=== PATIENT | female | born 1935 | race Caucasian/White ===

== ENCOUNTER 2024-10-17 20:26 | Emergency (ER) | payer OTHER, SELFPAY ==
[2024-10-17 20:31] VITALS: BP 168/92
[2024-10-17 20:52] LABS: Urine Albumin Negative (Neg - Trace); Urine Bilirubin Negative (Negative); Urine Character Clear (Clear); Urine Color Yellow; Urine Glucose Negative (Negative); Urine Ketone Negative (Negative); Urine Leukocyte Negative (Negative); Urine Nitrite Negative (Negative); Urine Occult Blood Negative (Negative); Urine Specific Gravity 1.025 (<1.030); Urine Urobilinogen Negative (Neg - 1+)
[2024-10-17 20:53] VITALS: BMI 18.8
[2024-10-17 20:54] LABS: % Eosinophils 2.2 % (0-6); % Immature Granulocytes 0.2 % (0-0.5); % Lymphocytes 29.8 % (20.5-51.1); % Monocytes 8.9 % (1.7-9.3); % Neutrophils 57.9 % (42.2-75.2); Absolute Basophils 0.1 10^3/uL (0-0.2); Absolute Eosinophils 0.1 10^3/uL (0-0.7); Absolute Lymphocytes 1.8 10^3/uL (1.2-3.4); Absolute Monocytes 0.5 10^3/uL (0.1-0.6); Absolute Neutrophils 3.4 10^3/uL (1.4-6.5); Hematocrit 38.7 % (37.0-47.0); Hemoglobin 13.1 g/dL (12.0-16.0); Mean Corp Hgb Conc. 33.9 g/dL (33.0-37.0); Mean Corpuscular Hgb 32.6 pg (27.0-31.0); Mean Corpuscular Volume 96.3 fL (81.0-99.0); Mean Platelet Volume 9.1 fL (7.4-10.4); Nucleated Red Blood Cells % 0 %; Platelet Count 248 10^3/uL (130-400); Red Blood Cell Count 4.02 10^6/uL (4.20-5.40); Red Cell Dist. Width 14.3 % (11.5-14.5); White Blood Cell Count 5.9 10^3/uL (4.8-10.8)
[2024-10-17 21:08] LABS: ALT (SGPT) 23 U/L (0-35); AST (SGOT) 37 U/L (14-36); Albumin 4.4 g/dl (3.5-5.0); Alkaline Phosphatase 66 U/L (38-126); Blood Urea Nitrogen 17 mg/dl (7-17); Calcium 10.6 mg/dl (8.4-10.2); Carbon Dioxide 27 mmol/L (22-30); Chloride 106 mmol/L (98-107); Estimated Creatinine Clearance 52 ml/min; Glucose 101 mg/dl (70-99); Lipase 89 U/L (23-300); Potassium 4.1 mmol/L (3.5-5.1); Sodium 138 mmol/L (135-145); Total Bilirubin 0.6 mg/dl (0.2-1.3); eGFR > 60.00
--- NOTE | 2024-10-17 21:08 | ED.GENMED ---
History of Present Illness
General
Chief Complaint: Abdominal Pain
Source: patient
Exam Limitations: none
Time Seen by Provider: 10/17/24 20:58
Nursing documentation reviewed up to this point in time: agreed with
History of Present Illness
History of Present Illness:
89-year-old female with history as noted presents to the ER for evaluation of abdominal pain. Patient reports onset of symptoms this evening prior to arrival and symptoms have been constant since then although the time my assessment she says
symptoms have improved somewhat. She reports that she went to the [employer] and had trouble getting comfortable but did not have significant pain. She subsequently went to dinner and after she ate her salad she had acute onset of intense pain
in the right mid abdomen. Pain nonradiating. She did not have any associated nausea or vomiting. Denies any associated diarrhea or constipation. Has not noted any dysuria, hematuria, change in urinary frequency. Denies fevers or chills. She
has never had similar symptoms in the past. She denies prior abdominal surgeries.
Past History
Past History
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
ED Past Surgical History: Orthopedic (bilateral knee replacements (2005), bilateral thumb surgery (2001), excision melanoma of neck (2011))
Social History
Tobacco: Non-smoker
Alcohol: Occasional
Drug: None
Personal:
Living: with family
Review of Systems
Review of Systems
All Other Systems: ROS reviewed and negative except as documented in HPI and ROS
Constitutional: Denies fever or chills
Respiratory: Denies cough or trouble breathing
Cardiac: Denies chest pain
ABD/GI: Reports abdominal pain; Denies nausea, vomiting, diarrhea or constipated
: Denies dysuria, frequency or flank pain
Musculoskeletal: Denies back pain
Phy Exam
Physical Exam
Physical Exam:
General: Awake, alert, oriented x3; no acute distress
Head: Normocephalic, atraumatic
Eyes: Conjunctiva normal, sclera anicteric
Throat: Airway intact, handling secretions
Neck: Trachea midline, supple without meningismus
Lungs: Clear to auscultation bilaterally, no wheezing, rales, rhonchi
Heart: Regular rate and rhythm, no murmurs, gallops, or rubs
Abd: Soft, non distended, mildly tender in the right upper quadrant, no palpable masses or hepatosplenomegaly
Back: No CVA tenderness
Neuro: No gross deficits
Skin: no rash in area of concern
Extremities: Warm and well-perfused
Scores
Heart Failure Risk
Heart Failure Risk Score: Not Applicable
Heart Score for Chest Pain Patients
STEMI patient?: Not applicable
Withdrawal Assessment of Alcohol
Withdrawal Assessment Completed?: Not applicable
Course
Orders/Labs/Results
Orders:
Orders
10/17/24 20:33
Electrocardiogram (*1) Urgent
Reason for Study: Abdominal Pain
EKG- Treatment ONCE
10/17/24 20:42
Complete Blood Count/With Diff Urgent
Comprehensive Metabolic Panel Urgent
Lipase Urgent
Urinalysis Reflex To Culture Urgent
Date Specimen was Collected: 10/17/24
Time Specimen was Collected: 20:33
10/17/24 21:00
CT Abd/pelvis W Iv Cont Urgent
Comment:
Reason For Exam: RLQ pain
10/17/24 21:01
EKG [Electrocardiogram (*1)] Urgent
Reason for Study: Abnormal EKG
EKG- Treatment ONCE
10/17/24 21:07
Add On- LAB Urgent
Tests Added?: troponin
10/17/24 21:29
Troponin I Urgent
Abnormal Lab Results
10/17/24
20:42
RBC 4.02 L 10^6/uL
(4.20-5.40)
MCH 32.6 H pg
(27.0-31.0)
Glucose 101 H mg/dl
(70-99)
Calcium 10.6 H mg/dl
(8.4-10.2)
AST 37 H U/L
(14-36)
10/17/24 20:42
10/17/24 20:42
Vital Signs
Initial and Last Documented VS:
Initial Vital Signs
Temp Pulse Resp BP Pulse Ox
36.8 C 80 16 168/92 98
10/17/24 20:31 10/17/24 20:31 10/17/24 20:31 10/17/24 20:31 10/17/24 20:31
Last Documented Vital Signs
Temp Pulse Resp BP Pulse Ox
36.8 C 64 17 168/99 94
10/17/24 20:31 10/17/24 22:49 10/17/24 22:49 10/17/24 22:49 10/17/24 22:00
MDM/Problems Addressed
Differential Diagnosis Includes:
Cholelithiasis, cholecystitis, pancreatitis, enteritis, nephrolithiasis, appendicitis, gastritis/PUD
MDM/Problems Addressed:
89-year-old female presents for evaluation of right mid abdominal pain that started rather abruptly after eating a salad today. Hypertensive otherwise normal vitals. Physical exam as above. She had an EKG in triage which showed some nonspecific
ST changes. Will plan to place an IV check labs including a CBC and CMP, lipase. Will check urinalysis. Check troponin although low suspicion that symptoms are anginal equivalent based on location of pain and tenderness. Will monitor closely
reassess after the above�fortunately her pain has improved and she is declining pain medication at present.
Labs reviewed: CBC unremarkable, CMP no clinically significant abnormalities�notably normal T. bili, normal lipase. Troponin undetectable. Urinalysis bland. On clinical reassessment patient reports that she is currently pain-free. CT is pending.
CT shows diffuse enteritis/ileus but no other acute abnormalities. Reassessment patient is feeling well she says she is pain-free. She is requesting to trial p.o.�will reassess after p.o. trial. If she remains asymptomatic at that she can
reasonably be discharged with instructions for a bland diet.
Patient tolerating p.o. without issue. No additional pain, no vomiting or nausea. She is requesting discharge and I think she is stable for discharge at this point. Encouraged bland diet. Spoke in detail about return precautions, all questions
answered. I did provide a copy of blood work and CT for outpatient follow-up with primary.
Acute Exacerbation and/or Progression of Chronic Illness:
Acutely hypertensive
Acute Exacerbation and/or Progression of Chronic Illness: HTN
*Radiology
Radiology exam reviewed: radiology read reviewed
*Pulse Oximetry
Patient hypoxic: no
*EKG
Interpreted by ED Provider?: Yes
Heart Rate: 70
Rate: normal
Rhythm: sinus
[place]: normal axis
Interval: normal interval
QRS Pattern: left vent hypertrophy
Ischemia: other (Nonspecific T wave abnormality)
*Critical Care Note
Total Time (30-74mins, 75-104mins- exclusive of procedures): Not Applicable
Data Reviewed
Source: patient and other (Friends)
ED Attending Note
-
Portions of this chart may have been created with voice recognition software.� Occasional wrong word or��sound alike� substitutions may have occurred due to the inherent limitations of voice recognition software.
Discharge Plan
Departure
Patient Disposition: Home (Routine Discharge)
Date of Disposition: 10/17/24
Time of Disposition: 23:21
Patient with high blood pressure during this ER visit?: Yes
Discharge Problem:
Enteritis, Hypertension
Instructions: Viral gastroenteritis in adults, Abdominal Pain, BLOOD PRESSURE
Prescriptions:
No Action
No Current Medications
0
Referrals:
Venkat Gómez MD [Family Provider, [facility]] - Call in 1-3 days for appt
Activity Restrictions/Additional Instructions:
Thank you for visiting the Emergency Department at [facility].
1. Please schedule a follow up appointment as directed. Call first thing tomorrow morning to make an appointment.
2. If indicated, please take your medications as instructed and indicated on discharge paperwork.
3. If any of your symptoms do not improve, or persist, or become more severe within 6-12 hours, please return to the emergency department for further care.
4. Please return to the emergency department if you develop a headache, neck pain/stiffness, fever greater than 100.4F, chest pain, shortness of breath, persistent nausea, vomiting, slurred speech, difficulty walking, numbness/tingling, weakness,
signs of infection or any other symptoms that are worrisome to you.
Please call [phone] if you have any questions.
Interventions
Interventions:
*Risk Screen - Suicide Last Done: 10/17/24 20:31
*General Assessment Last Done: 10/17/24 20:54
*Neglect/Abuse Screening Last Done: 10/17/24 20:31
*ED COVID-19 Vaccine History Last Done: 10/17/24 20:54
AG-Nwrnzr-Smfpsxazmf Assessment Last Done: 10/17/24 20:55
Discharge Date and Time
Print Language: MOLDOVAN
[2024-10-17 22:00] VITALS: BP 169/90
[2024-10-17 22:18] LABS: Troponin I < 0.012 ng/ml
[2024-10-17 22:49] VITALS: BP 168/99
== END 2024-10-17 23:29 | disposition home or self-care (01) ==
LOC: EMR 20:26
PROVIDERS: Emergency Medicine; EMERGENCY PHYSICIAN Emergency Medicine; FAMILY PHYSICIAN Family Medicine
DX: K52.9 Noninfective gastroenteritis and colitis, unspecified (principal); I10 Essential (primary) hypertension; Z85.820 Personal history of malignant melanoma of skin
CPT/HCPCS: 99284; 74177; 80053; 81003; 83690; 84484; 85025; 93005; Q9967

== ENCOUNTER 2025-05-04 08:57 | Inpatient (IN) | payer OTHER, SELFPAY ==
[2025-05-01 22:00] VITALS: BP 159/83
[2025-05-02] VITALS (22 sets, daily range): BP systolic 135–168; BP diastolic 68–96
[2025-05-02] MEDS: MORPHINE SULFATE 2 MG IV ×2 (01:29→03:06)
--- NOTE | 2025-05-02 03:36 | ED.GENMED ---
History of Present Illness
General
Chief Complaint: Fall
Source: patient and witness (Currently visiting friends, Dr. Yahir Dior who is currently accompanying patient.)
Exam Limitations: none
Time Seen by Provider: 05/02/25 00:26
Nursing documentation reviewed up to this point in time: agreed with
History of Present Illness
History of Present Illness:
HISTORY OF PRESENT ILLNESS
The patient is an 89-year-old female who presented to the emergency department after sustaining a fall. She reports that she slipped on ice and fell forward, landing primarily on her left elbow, which she has fractured in the past as a child. She
denies hitting her head or losing consciousness during the fall. She is right-handed and the injury is on her left arm.
The patient is currently experiencing pain in the left elbow, which was described as fractured into several pieces. She denied having any significant pain on the opposite side. Examination of her left elbow revealed no clear signs of an open
fracture, but there was a noted skin abrasion posterior elbow. The digital pulse in the affected arm is intact, and she is able to move her fingers and thumbs, although with some discomfort.
The patient is not taking any daily medication, and her pain is moderate. She is allergic to sulfa drugs but not to any pain medications. The decision was made to start an intravenous line for faster administration of pain relief, and further
imaging studies were to be reviewed by an adult specialist to determine the next steps.
Past History
Past History
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
ED Past Surgical History: Orthopedic (bilateral knee replacements (2005), bilateral thumb surgery (2001), excision melanoma of neck (2011))
Social History
Tobacco: Non-smoker
Alcohol: Occasional
Drug: None
Personal:
Living: alone
Employment: Retired
Family History
Family History: Other (Noncontributory)
Phy Exam
Physical Exam
Physical Exam:
GEN: 89-year-old woman, thin build, appears her stated age, bright and alert, pleasant, appears mildly uncomfortable related to left elbow pain, easily communicative.
EYE: pupils equal and reactive. anicteric. The head is normocephalic, atraumatic.
NECK: Supple, nontender, full range of motion without difficulty nor pain.
ENT: posterior pharynx is clear, oral mucosa is moist. TM clear b/l, nares patent.
CARDIAC: Regular rate and rhythm. no murmur. No chest wall tenderness.
LUNGS: Clear breath sounds bilaterally, no acute respiratory distress, no wheezes/rales/rhonchi
ABDOMEN: Soft, nondistended, without focal tenderness, . normoactive BS.
NEUROLOGICAL: Alert and oriented x3, no focal neuro deficits.
SKIN: Warm and dry, normal color, no rash. There is superficial abrasion posterior superior left elbow region. This abrasion is superficial. There is no active bleeding. No puncture wound. Nothing to suggest open fracture.
MUSCULOSKELETAL: No C/C/E. peripheral pulses are full and equal b/l. There is marked soft tissue swelling/joint effusion about the left elbow with limited range of motion of the left elbow related to pain. There is no tenderness to the upper arm
nor forearm nor wrist. Full digit range of motion without difficulty nor pain. Peripheral pulses are full and equal bilaterally. Distal sensation intact.
PSYCH: Normal and appropriate interaction.
Course
Orders/Labs/Results
Orders:
Orders
05/02/25 00:05
CR Elbow - Left Min 3 Views Urgent
Reason For Exam: fall
05/02/25 00:40
Morphine Sulfate 2 mg IV NOW STA
05/02/25 02:10
Propofol [Diprivan] 20 ml .ROUTE .STK-MED
05/02/25 02:51
Morphine Sulfate 2 mg IV NOW STA
05/02/25 06:33
CT Upper Ext W/o Iv Cont Lt Urgent
Comment:
Reason For Exam: comminuted elbow fx
05/02/25 06:35
Sling Left-Treatment ONCE
05/02/25 07:44
Physical Therapy Consult [Pt Eval And Treat] Urgent
Treatment: ambulation evaluation. Left elbow fx
Activity Level: Ambulate
05/02/25 07:52
Ibuprofen [Motrin] 400 mg PO Q4HPRN PRN
Oxycodone [Roxicodone] 5 mg PO Q4HPRN PRN
Vital Signs
Initial and Last Documented VS:
Initial Vital Signs
Temp Pulse Resp BP Pulse Ox
97.6 F 63 16 159/83 99
05/01/25 22:00 05/01/25 22:00 05/01/25 22:00 05/01/25 22:00 05/01/25 22:00
Last Documented Vital Signs
Temp Pulse Resp BP Pulse Ox
98.5 F 68 16 142/68 98
05/02/25 03:15 05/02/25 07:30 05/02/25 07:30 05/02/25 06:00 05/02/25 06:30
Procedures
Moderate Sedation
ASA Risk Score: Class I
Chart and allergies reviewed: Yes
Consent for anesthesia obtained: Yes
Time out completed (validating right patient & procedure): Yes
Moderate Sedation Start Time(when first medication is given): 02:33
History of difficult intubation: No
Airway free of obstruction: Yes
Patient has a gag reflex: Yes
Patient is able to open mouth: Yes
Patient has no dentures: Yes
Patient has no loose teeth: Yes
Medication administered by Provider during Moderate Sedation: IV Propofol (mg)
Total dose administered: 65
Time drug administered: 02:33
Moderate Sedation Procedure End Time: 02:45
Splinting/Sling Placement
Left Elbow:
Procedure completed by: myself
Pre-splint extermity exam: neurovascular intact
Type of splint: sugar-tong and posterior long arm
Splint material: fiberglass
Type of sling: sling fitted
Normal distal neurovascular exam?: Yes
Joint/Fracture Reduction
Left Elbow:
Indication for procedure:: left elbow fracture subluxation
Procedure completed by: myself
Consent form signed: Yes
Joint reduced: with anesthesia sedation (Moderate sedation by ED provider)
Anesthesia/sedation: Moderate sedation
Injury was: closed
Further treatement: needs further treatment
Post reduction exam: stable
Capillary Refill: normal
Normal distal neurovascular exam?: Yes
MDM/Problems Addressed
Differential Diagnosis Includes:
DIFFERENTIAL DIAGNOSIS
The Differential Diagnosis includes, in no particular order and is not limited to:
1. Left elbow fracture (comminuted).
2. Soft tissue injury of the left elbow.
3. Closed fracture.
4. Contusion of the left elbow.
5. Open fracture.
6. Dislocation.
7. Sprain or strain of the surrounding ligaments.
8. Hemarthrosis.
9. Nerve injury secondary to fracture.
10. Osteoporosis-related fracture.
MDM/Problems Addressed:
Acute left elbow pain after fall.
Significant clinical concern for elbow fracture. There is note of superficial abrasion posterior elbow but no active bleeding, no puncture wound nor laceration. Nothing on exam to suggest open fracture.
Left elbow x-ray shows comminuted distal humerus/transcondylar fracture with questionable subluxation.
Case discussed with orthopedics, images shared with orthopedics, Dr. Barbosa. He recommends traction for reduction, sugar-tong splint then CT post reduction and recommends follow-up with Dr. Nazario versus Dr. Mack to discuss surgical planning.
Will plan for IV morphine, 2 mg at a time for pain control then will plan for moderate sedation with propofol for joint reduction, splinting.
*Radiology
Radiology exam reviewed: preliminary read by ED provider (Comminuted distal humerus fracture with questionable subluxation) and radiology read reviewed (CT shows significantly comminuted, multi fragmentary, intra-articular distal humerus fracture.
No definite olecranon nor radial head fracture. No dislocation. Elbow effusion. Surrounding soft tissue edema.)
*Pulse Oximetry
SaO2: 99
Oxygen Mode of Delivery: Room air
Patient hypoxic: no
*Primary [place] [employer] Interpretation
Rate: normal
Interpretation: normal
Rhythm: sinus
*Critical Care Note
Total Time (30-74mins, 75-104mins- exclusive of procedures): Not Applicable
Update Note
Update Note:
07:45
Despite reduction, splint applied to left arm patient is much more comfortable with lying supine but significant left elbow pain with attempted movement especially with attempted standing, ambulation.
She resides at home alone and is at significant risk for recurrent falls, inability to care for herself.
Recommend hospitalization for pain control, ortho evaluation, PT and case management evaluation.
I have notified hospitalist. Hospitalist recommending PT consult.
ED Attending Note
-
Portions of this chart may have been created with voice recognition software.� Occasional wrong word or��sound alike� substitutions may have occurred due to the inherent limitations of voice recognition software.
Discharge Plan
Departure
Condition: Fair
Discharge Problem:
Comminuted distal left humerus fracture
Instructions: Elbow Fracture, Adult ED, How to care for a splint, MODERATE SEDATION ADULT
Prescriptions:
No Action
No Current Medications
0
Referrals:
Venkat Gómez MD [Family Provider, Family Practice]
Interventions
Interventions:
*General Assessment Last Done: 05/01/25 23:24
*Neglect/Abuse Screening Last Done: 05/01/25 22:00
*ED COVID-19 Vaccine History Last Done: 05/01/25 23:24
*ED Influenza Vaccine History Last Done: 05/01/25 23:24
[facility] Risk Assessment Tool Last Done: 05/01/25 23:24
*Risk Screen - Suicide (C-SSRS) Last Done: 05/01/25 22:00
ED-Musculoskeletal Assessment Last Done: 05/01/25 23:24
ED- Neurological Assessment Last Done: 05/01/25 23:24
ED-Skin Assessment Last Done: 05/01/25 23:24
Discharge Date and Time
Print Language: ARABIC
--- NOTE | 2025-05-02 09:14 | CM ---
Received consult, reviewed chart and met with pt bedside in ED. Lives alone in 2 SH, 2 [address]IA[address], firsr floor half bath, full flight to second floor bedroom and full bath.
Independent in ADLS, personal care and ambulation at baseline. No assistive devices. 2 years ago, son lives in [facility] but is currently in [facility].
Pt has a friend who was her 's caregiver while he was on hospice, her name is Nohelia. Pt will reach out to her to see if she can provide assistance at home, I also provided her with list of private pay caregiver agencies in the area.
Discussed HH referral, pt is not sure she needs it. Check again prior to discharge.
No hx HH or SNF
PCP: Venkat Gómez
Pharmacy: [facility]
Dr Rudolph made aware of above, pt to be admitted, she is working on safe discharge plan. CM will continue to follow.
[2025-05-02] MEDS: MOTRIN 400 MG PO (10:02)
--- NOTE | 2025-05-02 11:04 | HPS.HSE ---
Family Physician
-
Family Physician: Venkat Gómez
Chief Complaint
-
Fall leading onto left distal humerus fracture
History of Present Illness
Patient went to visit her friend for [employer]. On the sidewalk there was ice and she stepped on it accidently and slipped and fell down without loss of consciousness. She immediately perceived pain in the left arm. She had
broken that arm as a child.
Imaging shows comminuted distal left humerus fracture. ER spoke with orthopedics who recommended splint for now and refer outpatient for surgical evaluation.
She lives alone and she is now handicapped with the left arm in the splint. She also needed intravenous pain medication on admission.
Patient is getting admitted as an observation for pain management, therapy evaluation and need of placement.
Patient denies any recent changes with her health. She was in her usual state of health. Does not take any prescribed medications.
Medical History
Past Medical History
Past Medical History: Reports Other (Diverticulitis, Enrike Bala syndrome)
Past Surgical History: Reports Orthopedic (Bilateral knee replacements) and Other (Excision of melanoma in the neck)
Social History
Tobacco: Non-smoker
Alcohol: None
Drug: None
Living: Alone
Family History
Family History: Not pertinent
Allergies / Home Medications
Allergies reflects when Allergies were last updated in [employer].
Home Medications with original date entered in [employer]
Allergy/Medication List:
Allergies
Allergy/AdvReac Type Severity Reaction Status Date / Time
Sulfa (Sulfonamide Allergy Unknown Unknown Verified 05/01/25 22:02
Antibiotics)
(Sulfa(Sulfonamide
Antibiotics))
levofloxacin (From Levaquin) Allergy Hives Verified 05/01/25 22:02
metronidazole (From Flagyl) Allergy Rash Verified 05/01/25 22:02
Home Medications
No Meds [No Current Medications] 10/17/24
Review of Systems
-
A 12 point ROS was completed and negative except as noted: Yes
Physical Exam
Vital Signs
Vital Signs
Temp Pulse Resp BP Pulse Ox
98.5 F 65 13 142/68 98
05/02/25 03:15 05/02/25 10:30 05/02/25 10:30 05/02/25 06:00 05/02/25 06:30
Physical Exam
General: No Apparent Distress
HEENT: Moist mucous membranes
Respiratory: Clear and Non Labored Respirations; No Accessory Resp Muscle Use
Cardiac: S1/S2 and Regular Rhythm; No Tachycardia or JVD
GI: Soft, Non Tender, Non Distended and Normal Bowel Sounds
Musculoskeletal: Other (left arm in cast - swollen fingers and slightly numbness perceived by pt . ER doc came back and loosened the cast and she feels better.)
Neuro: AO x 3 and No Motor Deficits (left arm in cast); No Slurred Speech, Facial Droop or Tremors
Psych: Calm and Intact Judgment/Insight; No Confused
Data Reviewed
-
CT Scan: Report Reviewed by me (report of CT arm)
Impression/Plan
-
Mechanical fall leading onto comminuted distal fracture/transcondylar fracture with questionable subluxation on left
Admit admitted as observation for pain management, therapy evaluation, knee replacement evaluation. Patient lives alone.
Start on regular diet. Start on Tylenol, Motrin and oxycodone for pain management.
Continue to follow left fingers for swelling.
Patient without significant past medical history not taking any scheduled medication.
DVT prophylaxis with subcu heparin
Full code
--- NOTE | 2025-05-02 13:53 | CON.ORTHO ---
Consultation
-
Date/Time Consultation Requested: 1230 05/02/2025
Date/Time Consultation Performed: 1353 05/02/2025
Requesting Provider: Jesica Navas
Performing Provider: Edy Chin
Reason for Consultation: Left elbow injury
Consultation - Orthopedics
History
Orthopedic Surgery Note
CC: Left elbow injury
HPI: 89F presents sp slip and fall overnight. She was walking to go to [employer] and slipped on a patch of ice landing on her left elbow. She denies numbness or tingling. She was splinted overnight and is feeling better. Pain well
controlled.
PMH/PSH: diverticulitis; history of knee replacement
Medications: reviewed
Family History: Family history was reviewed. Noncontributory
Social history: Nonsmoker, no illicit drugs
Exam
General appearance: Pleasant. No acute distress.
Head: Normocephalic/atraumatic
Nose: No lesions or discharge.
Skin: No obvious rashes or open wounds
Lungs: No audible wheezing, no cough or sputum production
Musculoskeletal:
LUE
- splint in place
- fires r/u/m/ain/pin
- sensation intact to light touch r/u/m
- Fingers wwp, 1+ radial pulse
Imaging:
Left elbow xrays show comminuted interaticular distal humerus fracture.
CT left elbow shows comminuted interarticular distal humerus fracture with improved alignment in splint.
AP:
89F with left interarticular distal humerus fracture sp fall yesterday evening. I discussed treatment options with the patient including evaluation with Dr. Nazario for surgical treatment. We discussed nonoperative treatments. Dr. Nazario is available for
surgery tomorrow, so will plan for NPO after midnight and plan for ORIF tomrrow, OR time permitting. She's NV intact. Discussed pain control and elevation.
Edy Chin MD
> 75 minutes was spent reviewing the clinical information, evaluating the patient, and formulating clinical plan.
Allergies / Home Medications
Allergy/AdvReac Type Severity Reaction Status Date / Time
Sulfa (Sulfonamide Allergy Unknown Unknown Verified 05/01/25 22:02
Antibiotics)
(Sulfa(Sulfonamide
Antibiotics))
levofloxacin (From Levaquin) Allergy Hives Verified 05/01/25 22:02
metronidazole (From Flagyl) Allergy Rash Verified 05/01/25 22:02
�Medication �Instructions �Recorded
Celery Seed 2 tab PO HS 05/02/25
Unknown Vitamins/Supplements 1 dose PO DAILY 05/02/25
Vinpocetine 1 tab PO HS 05/02/25
ascorbic acid (vitamin C) 500 mg 1,000 mg PO HS 05/02/25
tablet (Vitamin C)
calcium 2 tab PO BID 05/02/25
cholecalciferol (vitamin D3) 250 250 mcg PO DAILY 05/02/25
mcg (10,000 unit) capsule
cyanocobalamin (vitamin B-12) 1,000 mcg PO HS 05/02/25
1,000 mcg tablet
omega-3 fatty acids 2 cap PO HS 05/02/25
Vital Signs / Lab Results
Temp Pulse Resp BP Pulse Ox
98.5 F 66 12 142/68 98
05/02/25 03:15 05/02/25 12:00 05/02/25 12:00 05/02/25 06:00 05/02/25 06:30
[2025-05-02] MEDS: NORMOSOL-R/PLASMALYTE-A 1000 IV (14:30)
[2025-05-02 14:51] LABS: Hematocrit 37.4 % (37.0-47.0); Hemoglobin 12.7 g/dL (12.0-16.0); Mean Corp Hgb Conc. 34.0 g/dL (33.0-37.0); Mean Corpuscular Volume 95.4 fL (81.0-99.0); Platelet Count 204 10^3/uL (130-400); Red Cell Dist. Width 14.5 % (11.5-14.5)
[2025-05-02 15:11] LABS: Blood Urea Nitrogen 19 mg/dl (7-17); Calcium 9.8 mg/dl (8.4-10.2); Carbon Dioxide 27 mmol/L (22-30); Chloride 104 mmol/L (98-107); Estimated Creatinine Clearance 56 ml/min; Glucose 111 mg/dl (70-99); Potassium 3.9 mmol/L (3.5-5.1); Sodium 135 mmol/L (135-145); eGFR > 60.00
[2025-05-02] MEDS: HEPARIN 5000 UNITS SC (19:28)
[2025-05-03] VITALS (14 sets, daily range): BP systolic 115–169; BP diastolic 61–95
[2025-05-03] MEDS: NORMOSOL-R/PLASMALYTE-A 1000 IV (02:30)
--- NOTE | 2025-05-03 05:43 | W.PN.UPDATE ---
Update Note
Progress Note Update
Patient resting, reasonably comfortable. Afeb. Left elbow splinted. DNVI CHAR. Plan or LEFT distal humerus ORIF today, as Dr. Nazario and the OR's availability permits. Consents have been obtained by Dr. Chin, signed by the patient, and been placed to
her chart. Has been NPO pMN. T&S has been requested for this AM in preparation of surgery. ABX OCTOR. Will follow post-operatively.
[2025-05-03 07:37] LABS: INR 1.21; PT 15.0 Sec (11.4-14.6)
[2025-05-03 07:38] LABS: APTT 29.1 Sec (23.4-35.0)
[2025-05-03 07:56] LABS: Blood Urea Nitrogen 11 mg/dl (7-17); Calcium 9.0 mg/dl (8.4-10.2); Carbon Dioxide 24 mmol/L (22-30); Chloride 107 mmol/L (98-107); Estimated Creatinine Clearance 56 ml/min; Glucose 101 mg/dl (70-99); Potassium 3.9 mmol/L (3.5-5.1); Sodium 133 mmol/L (135-145); eGFR > 60.00
[2025-05-03 08:18] LABS: Hematocrit 34.0 % (37.0-47.0); Hemoglobin 11.5 g/dL (12.0-16.0); Mean Corp Hgb Conc. 33.8 g/dL (33.0-37.0); Mean Corpuscular Volume 95.8 fL (81.0-99.0); Platelet Count 163 10^3/uL (130-400); Red Cell Dist. Width 14.5 % (11.5-14.5)
[2025-05-03] MEDS: HEPARIN 5000 UNITS SC ×2 (08:52→20:38)
--- NOTE | 2025-05-03 09:35 | CM ---
Addendum entered by Whitney Delarosa 05/03/25 09:39:
OBS status discussed patient did not sign letter, BRICE letter documented and placed on chart unsigned.
Original Note:
natural resource manager reviewed patient's chart and met with patient this morning and explained that physical therapy are recommending skilled, patient states she wants [facility], home health care case manager explained that patient may not meet criteria for acute
rehab, however patient wants a referral sent to [facility], home health care case manager sent a referral to [facility], and requested that patient have a back up plan, patient reluctantly agreed to [facility] as back up plan, referral also sent to [facility].
Plan; Acute rehab v's skilled.
--- NOTE | 2025-05-03 11:02 | W.PN.HOSP.TC ---
Today's Communication/Plan
-
OR today
Assessment / Plan
Assessment / Plan
Mechanical fall leading onto comminuted distal fracture/transcondylar fracture with questionable subluxation on left.
OR today for ORIF
CW pain medication - Tylenol, Motrin and oxycodone for pain management.
Preop cardiac eval
Patient without significant past medical history not taking any scheduled medication.
METS>4
EKG with no acute ST/T changes
No CHD equivalents
Pt at low risk for cardiovascular events for proposed surgery
Proceed with surgery as planned without additional testing
DVT prophylaxis with subcu heparin
Full code
Anticipated Discharge: 24 - 48 hours
Subjective/Interval History
-
Date of Service: May 03, 2025
Patient pain adequately controlled. Going to the OR today.
Denies any dizziness. No chest pain or palpitation. No nausea vomiting. No fever or chills.
Objective Data
-
Labs:
Laboratory Results
05/03/25
07:19
WBC 7.5
Hgb 11.5 L
Hct 34.0 L
Plt Count 163 D
PT 15.0 H
INR 1.21
APTT 29.1
Sodium 133 L
Potassium 3.9
Chloride 107
Carbon Dioxide 24
BUN 11
Creatinine 0.5 L
Glucose 101 H
Calcium 9.0
Vital Signs:
Vital Signs
Temp Pulse Resp BP Pulse Ox
99.1 F 76 16 169/95 96
05/03/25 07:00 05/03/25 07:00 05/03/25 07:00 05/03/25 07:00 05/03/25 07:00
I&O
05/02/25 05/03/25 05/04/25
06:59 06:59 06:59
Intake Total 1679
Balance 1679
Physical Exam
-
General: No Apparent Distress
Respiratory: Clear to Auscultation and Non Labored Respirations; Negative Accessory Resp Muscle Use
Cardiac: Regular Rhythm and S1/S2; Negative Tachycardic
GI: Soft
Musculoskeletal: No Edema
Neuro: AO x 3
Psych: Calm; Negative Confused
Data Reviewed
-
Medical Tests (Nuc Med, Echo etc): Image personally visualized and interpreted (EKG -SR with no acute ST/T changes) and Report Reviewed by me
Labs: Labs Reviewed by me
[2025-05-03] MEDS: ERYTHROMYCIN 0.5% OPHTHALMIC OINTMENT 1 APPLIC OPHTH (17:29)
[2025-05-03] MEDS: NORMOSOL-R/PLASMALYTE-A IV (22:05)
[2025-05-04 03:15] VITALS: BP 132/69
[2025-05-04 07:00] VITALS: BP 95/50
[2025-05-04] MEDS: HEPARIN 5000 UNITS SC ×2 (07:40→19:28)
--- NOTE | 2025-05-04 09:06 | W.PN.HOSP.TC ---
Today's Communication/Plan
-
PT/OT eval
DC planning
Assessment / Plan
Assessment / Plan
Mechanical fall leading onto comminuted distal fracture/transcondylar fracture with questionable subluxation on left.
S/p ORIF 05/03
1. Left distal radius open reduction, internal fixation with bone
graft.
2. Left olecranon osteotomy with open reduction, internal fixation
CW pain medication - Tylenol, Motrin and oxycodone for pain management.
No immediate postop cardiovascular complications.
Follow-up PT OT eval. Depending will make a referral to acute rehab versus SNF.
Medically stable for discharge
DVT prophylaxis with subcu heparin
Full code
Anticipated Discharge: Within 24 hours
Subjective/Interval History
-
Date of Service: May 04, 2025
Status post ORIF of the left humerus. Pain is controlled well.
Denies any chest pain or shortness of breath postsurgery. No nausea or vomiting. Tolerating diet.
Objective Data
-
Vital Signs:
Vital Signs
Temp Pulse Resp BP Pulse Ox
98.6 F 67 12 95/50 96
05/04/25 07:00 05/04/25 07:00 05/04/25 07:00 05/04/25 07:00 05/04/25 07:00
I&O
05/03/25 05/04/25 05/05/25
06:59 06:59 06:59
Intake Total 1680 / 1680 605 / 605
Output Total 350 / 350
Balance 1680 / 1680 255 / 255
Physical Exam
-
General: Comfortable
Respiratory: Clear to Auscultation and Non Labored Respirations; Negative Accessory Resp Muscle Use
Cardiac: Regular Rhythm and S1/S2; Negative Tachycardic
GI: Soft
Musculoskeletal: Other (Left arm in dressing)
Neuro: AO x 3
Psych: Calm; Negative Confused
Data Reviewed
-
Labs: Labs Reviewed by me
--- NOTE | 2025-05-04 10:09 | CM ---
Chart reviewed and patient has been made aware that she has been denied acute rehab, patient had wanted to go to [facility], but patient was declined as she does not meet criteria for acute rehab per [facility] admissions. promotion manager reviewed
with patient home with visiting nurses and private caregiver v's skilled placement, patient to discuss with PT/OT during evaluations.
Plan; Home with OT/PT and VN services, along with private caregiver v's skilled placement.
--- NOTE | 2025-05-04 10:33 | W.PN.ORTHO ---
Today's Communication / Plan
-
Appreciate primary team, continue Tx
Dispo Rehab, appreciate CM
OT
Splint/sling to remain- advised her I couldn't do much better for her
Elevated her up more and encouraged hand/digit ROM
Pain control/ice to elbow
Heparin for DVT ppx, per primary
Outpatient Ortho follow-up 2 weeks for splint removal, alvaro out, xrays, and elbow brace transition for gentle ROM as tolerated
Ortho to follow until D/c
Assessment
.
Distal Motor Intact: Yes
Dressing:
Clean, dry and intact. Splint intact LUE
Assessment:
POD#1 ORIF LEFT distal humerus
Overall doing/feeling well
DNVI LUE
Plan
.
Surgery / Date: LEFT distal humerus ORIF/May 02 ([facility])
DVT Prophylaxis: Heparin (per primary)
Activity:
Out of bed ad mary. NWB/No lifting LUE
PT/OT
Discharge Plan: Rehab (appreciate CM)
Subjective
.
.:
Patient seated bedside in chair. LUE splinted and in sling. Reports splint feels too heavy
Vital Signs and Labs
.
Vital Signs and Labs:
Lab Results
05/03/25 07:19
05/03/25 07:19
Temp Pulse Resp BP Pulse Ox
98.6 F 67 12 95/50 96
05/04/25 07:00 05/04/25 07:00 05/04/25 07:00 05/04/25 07:00 05/04/25 07:00
PT 15.0 Sec (11.4-14.6) H 05/03/25 07:19
INR 1.21 05/03/25 07:19
Non-invasive Hgb result: 12.1
[2025-05-04 11:00] VITALS: BP 109/66
[2025-05-04] MEDS: MOTRIN 400 MG PO ×3 (11:50→21:07)
[2025-05-04 11:53] VITALS: BP 134/69; PULSE 84; O2SAT 97
[2025-05-04] MEDS: ROXICODONE 5 MG PO (14:38)
[2025-05-04 15:00] VITALS: BP 141/78
[2025-05-04] MEDS: COLACE 100 MG PO (19:27)
[2025-05-04 23:00] VITALS: BP 121/64
[2025-05-05] MEDS: TYLENOL 650 MG PO ×3 (04:20→21:53)
--- NOTE | 2025-05-05 05:23 | W.PN.ORTHO ---
Today's Communication / Plan
-
Appreciate primary team, continue Tx
Dispo Rehab, appreciate CM
OT
Splint/sling to remain
Elevated her up more and encouraged hand/digit ROM
Pain control/ice to elbow
Heparin for DVT ppx, per primary
Outpatient Ortho follow-up 2 weeks for splint removal, alvaro out, xrays, and elbow brace transition for gentle ROM as tolerated
Ortho to follow until D/c
Assessment
.
Distal Motor Intact: Yes
Dressing:
Clean, dry and intact. Splint and dressings intact
Assessment:
POD#2 Left distal humerus ORIF
Doing well
DNVI LUE
Plan
.
Surgery / Date: LEFT distal humerus ORIF/May 02 ([facility])
DVT Prophylaxis: Other (per primary)
Activity:
Out of bed ad mary. NWB/no lifting LUE
PT/OT
Discharge Plan: Rehab (appreciate CM)
Subjective
.
.:
Patient more comfortable this AM
Vital Signs and Labs
.
Vital Signs and Labs:
Lab Results
05/03/25 07:19
05/03/25 07:19
Temp Pulse Resp BP Pulse Ox
98 F 70 16 121/64 96
05/04/25 23:00 05/04/25 23:00 05/04/25 23:00 05/04/25 23:00 05/04/25 23:00
PT 15.0 Sec (11.4-14.6) H 05/03/25 07:19
INR 1.21 05/03/25 07:19
Non-invasive Hgb result: 12.1
[2025-05-05 07:01] VITALS: BP 159/72
[2025-05-05] MEDS: COLACE 100 MG PO ×2 (07:11→20:14)
[2025-05-05] MEDS: HEPARIN 5000 UNITS SC ×2 (07:11→20:15)
[2025-05-05] MEDS: MIRALAX 17 GRAMS PO (07:15)
[2025-05-05] MEDS: MOTRIN 400 MG PO (08:19)
--- NOTE | 2025-05-05 11:31 | CM ---
After another conversation with patient today plan is for skilled placement at [facility], referral sent to [facility] admissions and waiting on a determination, patient will need Auth from patient's insurance after determination from [facility].
Plan; Skilled placement at [facility] waiting on determination.
--- NOTE | 2025-05-05 13:06 | W.PN.HOSP.TC ---
Today's Communication/Plan
-
DC in am if stable
Assessment / Plan
Assessment / Plan
Mechanical fall leading onto comminuted distal fracture/transcondylar fracture with questionable subluxation on left.
S/p ORIF 05/03
1. Left distal radius open reduction, internal fixation with bone
graft.
2. Left olecranon osteotomy with open reduction, internal fixation
CW pain medication - Tylenol, Motrin and oxycodone for pain management.
No immediate postop cardiovascular complications.
cw PT OT eval.Needs rehab on DC-pt agreeable.
Medically stable for discharge
DVT prophylaxis with subcu heparin
Full code
Anticipated Discharge: Within 24 hours
Subjective/Interval History
-
Date of Service: May 05, 2025
Voices no specific complaints.
Left arm pain tolerable.
No fever or chills.
Denies shortness of breath or chest pain.
Objective Data
-
Vital Signs:
Vital Signs
Temp Pulse Resp BP Pulse Ox
98.2 F 69 12 159/72 97
05/05/25 07:01 05/05/25 07:01 05/05/25 07:01 05/05/25 07:01 05/05/25 07:01
I&O
05/04/25 05/05/25 05/06/25
06:59 06:59 06:59
Intake Total 605 / 605 720 / 720
Output Total 350 / 350
Balance 255 / 255 720 / 720
Physical Exam
-
General: Comfortable
Respiratory: Non Labored Respirations; Negative Accessory Resp Muscle Use
Cardiac: Regular Rhythm and S1/S2
Musculoskeletal: Other (left arm in cast and sling)
Neuro: AO x 3
Psych: Calm
[2025-05-05] MEDS: DULCOLAX 5 MG PO (14:18)
[2025-05-05 15:00] VITALS: BP 134/74
[2025-05-05 15:30] VITALS: BP 141/87; PULSE 76; O2SAT 96
[2025-05-05 23:06] VITALS: BP 139/69
--- NOTE | 2025-05-06 07:07 | W.PN.ORTHO ---
Today's Communication / Plan
-
Follow up in the office in 10-14 days upon discharge
Assessment
.
Distal Motor Intact: Yes
Dressing:
Clean, dry and intact.
Assessment:
Doing well
Plan
.
Surgery / Date: LEFT distal humerus ORIF/May 02 ([facility])
Activity:
NWE LUE
Out of bed.
PT/OT
Discharge Plan: Rehab
Discharge Information:
Follow up in the office in 10-14 days upon discharge
Subjective
.
.:
Patient sitting on the bed comfortably
Vital Signs and Labs
.
Vital Signs and Labs:
Lab Results
05/03/25 07:19
05/03/25 07:19
Temp Pulse Resp BP Pulse Ox
98.6 F 70 18 139/69 95
05/05/25 23:06 05/05/25 23:06 05/05/25 23:06 05/05/25 23:06 05/06/25 01:13
PT 15.0 Sec (11.4-14.6) H 05/03/25 07:19
INR 1.21 05/03/25 07:19
Non-invasive Hgb result: 12.1
Physical Exam
-
LUE: Splint and sling in place. Mild swelling of the hand. Intact AROM of all fingers, wrists. Sensation intact
[2025-05-06] MEDS: MIRALAX 17 GRAMS PO (07:11)
[2025-05-06] MEDS: COLACE 100 MG PO (07:12)
[2025-05-06] MEDS: MOTRIN 400 MG PO (07:12)
[2025-05-06] MEDS: HEPARIN 5000 UNITS SC (07:12)
[2025-05-06 07:42] VITALS: BP 191/99
--- NOTE | 2025-05-06 10:02 | CM ---
Addendum entered by Rubia Ennis 05/06/25 12:10:
IMM benefit explained to son via phone; form dated/timed @ 1209
Addendum entered by Rubia Ennis 05/06/25 12:07:
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
Addendum entered by Rubia Ennis 05/06/25 11:04:
Authorization approved starting today; 7 days fpc
Auth # [id number]
Plan: Discharge to [facility] today via ambulance
Report #[phone]

Original Note:
Per attending patient is stable for discharge today
Left a voice mail for Isabell @ [facility] requesting bed availability today
Plan: Discharge to SNF pending bed availability and Authorization approval
[2025-05-06 11:50] VITALS: BP 147/82
--- NOTE | 2025-05-06 11:50 | W.PN.HOSP.TC ---
Addendum entered and electronically signed by Dipesh Vasquez MD 05/06/25 12:02:
Gen:nad, sitting in chair
Heent-neck is supple, trachea midline
cards s1 s2, LE trace edema
resp non labored respirations
MSK LUE in sling.
neuro aox 3
Original Note:
Today's Communication/Plan
-
dc to snf
OP ortho f/u
Assessment / Plan
Assessment / Plan
Mechanical fall leading onto comminuted distal fracture/transcondylar fracture with questionable subluxation on left.
S/p ORIF 05/03
1. Left distal radius open reduction, internal fixation with bone
graft.
2. Left olecranon osteotomy with open reduction, internal fixation
CW pain medication
cw PT OT eval.Needs rehab on DC-pt agreeable.
Medically stable for discharge
DVT prophylaxis with subcu heparin
Full code
More than 30 minutes spent in discharge including
Final examination of the patient
Summarizing hospital stay
Instructions for continuing care to all relevant caregivers
Preparation of discharge records, prescriptions, and referral forms
Total time spent (in minutes): 55
Anticipated Discharge: Today
Subjective/Interval History
-
Date of Service: May 06, 2025
states edema in L hand has improved
Objective Data
-
Vital Signs:
Vital Signs
Temp Pulse Resp BP Pulse Ox
98.3 F 82 18 191/99 97
05/06/25 07:42 05/06/25 07:42 05/06/25 07:42 05/06/25 07:42 05/06/25 07:42
I&O
05/05/25 05/06/25 05/07/25
06:59 06:59 06:59
Intake Total 720 / 720 1300 / 1300
Balance 720 / 720 1300 / 1300
--- NOTE | 2025-05-06 11:52 | W.DCSUMMARY ---
Discharge Summary
Discharge Data
Date of Admission: 05/04/25
Date of Discharge: 05/06/25
-
Pending Results: No
Hospital Course
89-year-old female who is presenting after mechanical fall when she accidentally slipped and fell. Patient was complaining of severe pain in the left arm. Imaging shows comminuted distal left humerus fracture. Patient was eval by orthopedic and
patient went to the operating room. S/p ORIF 05/03 Left distal radius open reduction, internal fixation with bone
graft and Left olecranon osteotomy with open reduction, internal fixation. Postop patient did well. Pain was controlled. Patient was followed by orthopedic and recommended outpatient postop follow-up. Patient was eval by therapy and will be
discharged to fdc facility.
Discharge Plan
-
Patient Disposition: Long Term/SNF
Discharge Diagnosis/Procedures: Left distal humerus comminuted intra-articular fracture
status post Left distal radius open reduction, internal fixation with bone
graft
status post Left olecranon osteotomy with open reduction, internal fixation.
Condition: Fair
Diet: Regular
Activity: Other activity
Additional Activity: Non weight bearing LUE
Driving Restrictions: No driving
Referrals:
Grey Nazario MD [Active, Orthopedics] - in one to two weeks
Referral Note: CALL TO MAKE APPT.
Venkat Gómez MD [Family Provider, Family Practice]
Prescriptions:
New
acetaminophen 325 mg Tablet
650 mg PO Q4HPRN PRN (Reason: mild-mod pain) Qty: 30 0RF
oxycodone 5 mg Tablet
5 mg PO BIDPRN PRN (Reason: severe pain) Qty: 6 0RF
sennosides-docusate sodium [Senna with Docusate Sodium] 8.6-50 mg tablet
1 tab-cap PO BID Qty: 14 0RF
Continued
cyanocobalamin (vitamin B-12) 1,000 mcg Tablet
1,000 mcg PO HS
ascorbic acid (vitamin C) [Vitamin C] 500 mg Tablet
1,000 mg PO HS
omega-3 fatty acids Capsule
2 cap PO HS
cholecalciferol (vitamin D3) 250 mcg (10,000 unit) Capsule
250 mcg PO DAILY
Celery Seed
2 tab PO HS
Unknown Vitamins/Supplements
1 dose PO DAILY
Patient Comments:
05/02/2025, pt. not sure the name of the other vitamins/supplements that she is taking.
Vinpocetine
1 tab PO HS
calcium
2 tab PO BID
Discharge Orders:
Discharge Patient (As Directed); Ordered 05/06/25
Ordered By: Dipesh Vasquez
Discharge Date and Time
Discharge Date/Time: 05/06/25 14:00
Print Language: SLOVENIAN
== END 2025-05-06 14:00 | DRG 512 ==
LOC: 2 SOUTH 08:57
PROVIDERS: Orthopaedic Surgery; ADMITTING PHYSICIAN Internal Medicine; ATTENDING PHYSICIAN Hospitalist; EMERGENCY PHYSICIAN Emergency Medicine; FAMILY PHYSICIAN Family Medicine; OTHER PHYSICIAN Orthopaedic Surgery
PROC: 0PSL04Z Reposition Left Ulna with Internal Fixation Device, Open Approach (ICD-10-PCS; 2025-05-03)
PROC: 0PSJ04Z Reposition Left Radius with Internal Fixation Device, Open Approach (ICD-10-PCS; 2025-05-03)
PROC: 0PUJ07Z Supplement Left Radius with Autologous Tissue Substitute, Open Approach (ICD-10-PCS; 2025-05-03)
PROC: 0PBL0ZZ Excision of Left Ulna, Open Approach (ICD-10-PCS; 2025-05-03)
DX: S42.402A Unspecified fracture of lower end of left humerus, initial encounter for closed fracture (principal); W01.0XXA Fall on same level from slipping, tripping and stumbling without subsequent striking against object, initial encounter; Z88.2 Allergy status to sulfonamides; Z96.653 Presence of artificial knee joint, bilateral
CPT/HCPCS: 24600; 73080; 73200; 73502; 76000; 80048; 85027; 85610; 85730; 86850; 86900; 86901; 93005; 97116; 97167; 97530; 99285